=== PATIENT | male | born 1980 | race Caucasian/White ===

== ENCOUNTER 2025-06-22 10:52 | Emergency (ER) | payer SELFPAY ==
[2025-06-22 11:01] VITALS: BP 145/113; PULSE 78; RESP 16; TEMP 36.6; O2SAT 100; BMI 28.8
--- NOTE | 2025-06-22 11:10 | XR_ITS ---
WS: [id number] XR chest 1V portable [id number] REASON FOR EXAM: cough, chills, fever FINDINGS: The heart and mediastinum are within normal limits Minimal calcified granulomatous disease bilaterally. No acute pulmonary parenchymal or pleural abnormality. Mild degenerative spondylosis in the mid and lower thoracic spine. XR/XR chest 1V portable [id number] IMPRESSION: No acute chest abnormality.
--- NOTE | 2025-06-22 11:16 | ED_ITS ---
Documented by User: SAMM Brand 06/23/25 13:30 HPI - Dizziness 2 General: Chief Complaint: Dizziness Stated Complaint: dizzy, confusion, memory issues, n/v, sweating Time Seen by Provider: 06/22/25 11:01 Source: patient Mode of arrival: ambulatory Limitations: no limitations History of Present Illness: HPI Narrative: Patient is a 45-year-old male who presents the emergency department with multiple symptoms for the past few days. States his was recently sick after being in the hospital, patient thinks that he has contracted this. Reporting fevers and chills. He is reporting dizziness, weakness, nausea and vomiting. States that he has a dry cough, and that he has felt like prior incidence when he had COVID. No chest pain or shortness of breath. His vitals are stable at this time, no pertinent past medical history. MD elicited complaint: dizziness and other (weak, N/V, cough) Associated symptoms: Reports chills, nausea and vomiting; Denies chest pain, headache(s) or palpitations Associated neuro symptoms: Deny numbness in extremities Related Data Allergies Allergy/AdvReac Type Severity Reaction Status Date / Time No Known Allergies Allergy Verified 06/22/25 11:03 Review of Systems 2 General: Reports: 10 or more systems reviewed and unremarkable except in HPI and below Const: Reports: fever(s), chills and fatigue Eyes: Denies: change in vision ENMT: Denies: throat pain, ear or mastoid pain or nasal discharge Card: Denies: chest pain, palpitations, swelling of feet/ankles or lightheadedness Resp: Reports: non-productive cough; Denies: dyspnea, productive cough or wheezing GI: Reports: nausea and vomiting; Denies: abdominal pain, diarrhea or constipation : Denies: flank pain, difficulty urinating, dysuria or urinary frequency Musc: Denies: neck pain, back pain or joint pain Skin/Breast: Denies: rash Neuro: Reports: weakness in extremities and dizziness; Denies: headache(s) or numbness in extremities Physical Exam 2 Const: COMMON NORMALS: no acute distress, patient oriented x3 and no limitations GENERAL APPEARANCE: cooperative, comfortable and well developed ORIENTATION/CONSCIOUSNESS: Yes awake, Yes oriented to person, Yes oriented to place and Yes oriented to time HENMT: COMMON NORMALS: normocephalic, atraumatic and hearing grossly normal bilaterally HEAD & SCALP: normocephalic and atraumatic Eye: COMMON NORMALS: Equal, round and reactive pupils present, EOMs intact bilaterally and conjunctivae normal CONJUNCTIVA: Yes conjunctivae normal P UPIL: Yes Equal, round and reactive pupils present Neck/C-Spine: COMMON NORMALS: full ROM, supple and no JVD Resp: COMMON NORMALS: normal respiratory effort, No retractions, No use of accessory muscles and clear to auscultation bilaterally AUSCULTATION: clear to auscultation bilaterally Cardio: COMMON NORMALS: no JVD, regular rate, regular rhythm, No clicks present (Cardio), No murmurs present (Cardio) and No rub (Cardio) RATE: r egular rate RHYTHM: regular rhythm GI: COMMON NORMALS: Normal to inspection, nondistended, normoactive bowel sounds present, Soft to palpation and non-tender AUSCULTATION: Yes normoactive bowel sounds PALPATION: Yes Soft to palpation RECTAL EXAM: Yes deferred Extremity: COMMON NORMALS: normal to inspection, full ROM and capillary refill normal Neuro: COMMON NORMALS: patient oriented x3, moves all extremities, no focal motor deficits and no sensory deficits noted SENSORIUM/ORIENTATION: Yes oriented to person, Yes oriented to place and Yes oriented to time Skin: COMMON NORMALS: no rashes or lesions noted GENERAL SKIN EXAM: no rashes or lesions noted Course 2 Vital Signs: Vital signs: Vital Signs Temperature 97.9 F 06/22/25 11:01 Pulse Rate 72 06/22/25 12:30 Respiratory Rate 16 06/22/25 11:01 Blood Pressure 170/109 06/22/25 12:30 Pulse Oximetry 99 06/22/25 12:30 Oxygen Delivery Me thod Room Air 06/22/25 11:31 MDM - Dizziness Medical Decision Making Patient presenting after not feeling well for few days, positive sick contact exposure to spouse. Physical exam unremarkable, chest x-ray is not show any focal consolidation. Lab work reassuring, however COVID swab is positive. Patient is given instructions on contact precaution and further management at home but is stable for discharge and is given return precautions routinely. Lab Data 06/22/25 11:25 06/22/25 11:25 Radiology Impressions Chest X-Ray 06/22/25 11:10 IMPRESSION: No acute chest abnormality. Laboratory Results WBC 6.77 10^3/uL (3.29-11.43) 06/22/25 11: RBC 5.46 10^6/uL (3.85-5.65) 06/22/25 11:25 Hgb 15.40 g/dL (11.27-16.99) 06/22/25 11:25 Hct 45.9 % (37-53) 06/22/25 11:25 MCV 84.1 fl (82-101) 06/22/25 11:25 MCH 28.2 pg (27-33) 06/22/25 11:25 MCHC 33.6 g/dL (30-55) 06/22/25 11:25 RDW 13.3 % (12.1-15.1) 06/22/25 11: Plt Count 215 10^3/cmm (157-399) 06/22/25 11:25 MPV 9.8 fL (7.4-10.4) 06/22/25 11:25 Neut % (Auto) 81.1 % 06/22/25 11:25 Lymph % (Auto) 11.7 % 06/22/25 11:25 [place] % (Auto) 5.2 % 06/22/25 11:25 Eos % (Auto) 1.0 % 06/22/25 11:25 Baso % (Auto) 0.7 % 06/22/25 11: Neut # (Auto) 5.49 10^3/uL (1.8-7.7) 06/22/25 11:25 Lymph # (Auto) 0.8 10^3/uL (0.8-4.8) 06/22/25 11:25 [place] # (Auto) 0.4 10^3/uL (0.2-0.9) 06/22/25 11:25 Eos # (Auto) 0.1 10^3/uL (0.0-0.8) 06/22/25 11:25 Baso # (Auto) 0.1 10^3/uL (0.0-0.1) 06/22/25 11:25 Nucleated RBC % (auto) 0 % 06/22/25 11: Nucleated RBCs # 0.0 /100WBC 06/22/25 11:25 Sodium 143 mmol/L (136-145) 06/22/25 11:25 Potassium 3.7 mmol/L (3.5-5.1) 06/22/25 11:25 Chloride 104 mmol/L (98-107) 06/22/25 11:25 Carbon Dioxide 25 mmol/L (22-29) 06/22/25 11:25 Anion Gap 17.7 (5-19) 06/22/25 11:25 BUN 10 mg/dL (6-20) 06/22/25 11:25 Creatinine 1.0 mg/dL (0.7-1.2) 06/22/25 11:25 GFR Calculation 80.8 mL/min (90-130) L 06/22/25 11:25 Glucose 110 mg/dL (65-115) 06/22/25 11:25 Calculated Osmolality 296 mOsm/kg (285-295) H 06/22/25 11:25 Calcium 9.8 mg/dL (8.5-10.5) 06/22/25 11:25 Total Bilirubin 0.5 mg/dL (0.15-1.2) 06/22/25 11:25 AST 88 U/L (0-40) H 06/22/25 11:25 ALT 114 U/L (0-41) H 06/22/25 11:25 Alkaline Phosphatase 226 U/L (40-130) H 06/22/25 11:25 Total Protein 8.1 g/dL (6.6-8.7) 06/22/25 11:25 Albumin 4.5 g/dL (3.5-5.2) 06/22/25 11:25 Globulin 3.6 g/dL (1.3-4.6) 06/22/25 11:25 Urine Color Yellow (Yellow) 06/22/25 11:20 Urine Appearance Clear (CLEAR) 06/22/25 11:20 Urine pH >=9.0 (5-7) A 06/22/25 11:20 Ur Specific [place] 1.017 (1.005-1.030) 06/22/25 11:20 Urine Protein 1+ (Negative) A 06/22/25 11:20 Urine Glucose (UA) Negative (Normal) 06/22/25 11:20 Urine Ketones Trace (Negative) 06/22/25 11:20 Urine Blood Negative (Negative) 06/22/25 11:20 Urine Nitrate Negative (Negative) 06/22/25 11:20 Urine Bilirubin Negative (Negative) 06/22/25 11:20 Urine Urobilinogen 1.0 mg/dL (Negative) 06/22/25 11:20 Ur Leukocyte Esterase Negative (Negative) 06/22/25 11:20 Urine RBC 0-2 /hpf (0-2) 06/22/25 11:20 Urine WBC 0-5 /hpf (0-5) 06/22/25 11:20 Ur Squamous Epith Cells 0-5 /hpf (0-5) 06/22/25 11:20 Amorphous Sediment Not Reportable 06/22/25 11:20 Urine Bacteria None seen /hpf (NONE) 06/22/25 11:20 Hyaline Casts 0.81 /lpf 06/22/25 11:20 Influenza A (PCR) Negative (Negative) 06/22/25 11:26 Influenza Type B (PCR) Negative (Negative) 06/22/25 11:26 RSV (PCR) Negative (Negative) 06/22/25 11:26 SARS-CoV-2 (PCR) Positive (Negative) A 06/22/25 11:26 All radiology interpretation(s) finalized by discharge Discharge Plan Discharge Patient Disposition: Home Clinical Impression: COVID-19 Condition: Stable Discharge Orders: Discharge ED (Routine); Ordered 06/22/25 Ordered By: Claus Garsia Patient Instructions: Patient Portal & Heather Instructions Activity Restrictions/Additional Instructions: COVID-19 Discharge Instructions Diagnosis: 45-year-old male with confirmed COVID-19. Discharge Criteria Met: - Afebrile for >24 hours without antipyretics - Respiratory symptoms improved - Meets CDC symptom-based criteria for discontinuation of isolation[1] https://www.cdc.gov/covid/hcp/infection-control/ [2] https://www.ncbi.nlm.nih.gov/pmc/articles/XXC0939688/ [3] https://www.nejm.org/doi/full/10.1056/FHADgl1917891 Home Isolation and Infection Control: - Remain in home isolation until at least 10 days have passed since symptom onset, 24 hours have passed since last fever without antipyretics, and symptoms have improved. If symptoms persist or worsen, isolation may need to be extended. [1] https://www.cdc.gov/covid/hcp/infection-control/ [3] https://www.nejm.org/doi/full/10.1056/GEBBcj8343559 - If immunocompromised or severe illness, isolation may be required for up to 20 days; consider test-based strategy if clinically indicated.[1] https://www.cdc.gov/covid/hcp/infection-control/ - Stay in a well-ventilated single room, if possible. - Minimize contact with household members, especially those at increased risk (elderly, immunocompromised, , or with chronic conditions).[2] https://www.ncbi.nlm.nih.gov/pmc/articles/THP6778136/ - Use a well-fitted mask when around others, especially during the first 5 days after ending isolation.[4] https://www.nejm.org/doi/full/10.1056/HFKMkx9852821 - Practice strict hand hygiene and respiratory etiquette (cover coughs/sneezes, dispose of tissues appropriately).[5] https://jamanetwork.com/journals/antolin/fullarticle/10.1001/antolin.2020.77734?utm_so urce=openevidence&utm_medium=referral - Avoid sharing personal items (dishes, towels, bedding). - Clean and disinfect high-touch surfaces daily. Supportive Care: - Rest and maintain adequate hydration.[3] https://www.nejm.org/doi/full/10.1056/BVSYvx0088163 [6] https://pubmed.ncbi.nlm.nih.gov/43160642 - Use antipyretics (e.g., acetaminophen) for fever as needed. - Monitor for worsening symptoms, including increased shortness of breath, chest pain, confusion, or persistent fever.[3] https://www.nejm.org/doi/full/10.1056/MPNEtd2942582 [6] https://pubmed.ncbi.nlm.nih.gov/56036509 - Consider use of a pulse oximeter for self-monitoring if at high risk for complications.[3] https://www.nejm.org/doi/full/10.1056/HCCSfm4027302 - No evidence-based outpatient pharmacologic therapy is recommended for mild to moderate COVID-19; management is supportive.[6] https://pubmed.ncbi.nlm.nih.gov/57413121 [7] https://www.ncbi.nlm.nih.gov/pmc/articles/MLZ2229964/ Follow-Up and Monitoring: - Self-monitor for symptom recurrence or worsening. - Seek prompt medical attention for any of the following: - Difficulty breathing or shortness of breath - Persistent chest pain or pressure - New confusion or inability to arouse - Cyanosis (bluish lips or face)[3] https://www.nejm.org/doi/full/10.1056/AREObw1047680 [6] https://pubmed.ncbi.nlm.nih.gov/29638281 - Arrange telemedicine follow-up as needed until full recovery.[8] https://pubmed.ncbi.nlm.nih.gov/80077328 - If symptoms recur (e.g., rebound), resume isolation and seek re-evaluation.[1] https://www.cdc.gov/covid/hcp/infection-control/ Household Precautions: - Household members should monitor for symptoms and consider testing if symptomatic or exposed.[4] https://www.nejm.org/doi/full/10.1056/XOHRvy3338158 - All household members should adhere to infection control measures until risk of transmission is low.[2] https://www.ncbi.nlm.nih.gov/pmc/articles/YEN3515840/ Return to Work and Community: - May return to work and community activities after meeting CDC criteria for discontinuation of isolation.[1] https://www.cdc.gov/covid/hcp/infection- control/ [3] https://www.nejm.org/doi/full/10.1056/QSXLrs3107327 - Continue to wear a mask in public for 5 days after ending isolation.[4] https://www.nejm.org/doi/full/10.1056/IOMNhh9195559 Additional Considerations: - If immunocompromised, consult infectious disease for test-based discontinuation of isolation.[1] https://www.cdc.gov/covid/hcp/infection- control/ - If bacterial pneumonia is suspected, empiric antibiotics may be considered but should be discontinued if not indicated.[3] https://www.nej.org/doi/full/10.1056/PYGFub8847534 - No routine use of fluvoxamine or other outpatient COVID-19 therapies is recommended.[7] https://www.ncbi.nlm.nih.gov/pmc/articles/YDT9893613/ Patient Education: - Provide clear instructions on infection control, symptom monitoring, and when to seek care.[1] https://www.cdc.gov/covid/hcp/infection-control/ [2] https://www.ncbi.nlm.nih.gov/pmc/articles/MRG7390232/ [6] https://pubmed.ncbi.nlm.nih.gov/26814583 - Reinforce importance of adherence to isolation and hygiene measures. Documentation: - Discharge summary should include date of symptom onset, date of last fever, improvement in symptoms, and criteria met for discontinuation of isolation.[1] https://www.cdc.gov/covid/hcp/infection-control/ [2] https://www.ncbi.nlm.nih.gov/pmc/articles/IXM5340704/ [3] https://www.nej.org/doi/full/10.1056/IOJOdt2565628 References * Infection Control Guidance: SARS-CoV-2 COVID-19 https://www.cdc.gov/covid/hcp/infection-control/ . [place] Centers for Disease Control and Prevention (2022). * The Management of Surgical Patients in The?emergency Setting During COVID-19 Pandemic: The WS Position Paper https://www.ncbi.nlm.nih.gov/pmc/articles/PYR6386826/ . Head, Gwendolyn Casarez, Moraima Robertson, et al. World Journal of Emergency Surgery : WJES. 2020;16(1):14. doi:10.1186/e86910-135-94331-6. * Mild or Moderate Covid-19 https://www.nej.org/doi/full/10.1056/QELHyp8663106 . Wright RT, Isbell LOCO, Ranger C. The [place] Journal of Medicine. 2020;383(18):0164-3388. doi:10.1056/RNKSfj1411782. * Rapid Diagnostic Testing for SARS-CoV-2 https://www.nej.org/doi/full/10.1056/RLPMzp2115677 . Drain PK. The [place] Journal of Medicine. 2021;386(3):264-272. doi:10.1056/OIRExw6555706. * Pathophysiology, Transmission, Diagnosis, and Treatment of Coronavirus Disease 2019 (COVID-19): A Review https://jamanetwork.com/journals/antolin/fullarticle/10.1001/antolin.2020.60440?utm_ source=openevidence&utm_medium=referral . Brian CorreiaJ, Indigo A, Hawk TOPETE, Pretty SJ, Brown HC. ANTOLIN. 2020;324(8):782-793. doi:10.1001/antolin.2020.67223. * Outpatient Management of COVID-19: Rapid Evidence Review https://pubmed.ncbi.nlm.nih.gov/58723664 . Hawk Franco, Deepak D, Anita Acosta. [place] [employer]. 2020;102(8):478-486. * Outpatient Treatment of Confirmed COVID-19: Living, Rapid Practice Points From the [employer] [employer] (Version 1) https://www.ncbi.nlm.nih.gov/pmc/articles/BLX2128256/ . Regan A, Nirav J, Tatum MC, et al. Annals of Internal Medicine. 2022;176(1):115-124. doi:10.7580/D59-0192. * A Collaborative Multidisciplinary Approach to the Management of Coronavirus Disease 2019 in the Hospital Setting https://pubmed.ncbi.nlm.nih.gov/23658342 . Trent RR, Ilir KM, Jyothi AM, et al. [facility] Proceedings. 2020;95(7):8452-7498. doi:10.1016/j.mayocp.2020.05.010. Print Language: Swedish Coding Level of Care Code ED [employer] Reader for Chg Fwd Documented by User: Yoandy Kim DO 06/23/25 14:37 HPI - Dizziness 2 General: Chief Complaint: Dizziness Stated Complaint: dizzy, confusion, memory issues, n/v, sweating Time Seen by Provider: 06/22/25 11:01 Related Data Allergies Allergy/AdvReac Type Severity Reaction Status Date / Time No Known Allergies Allergy Verified 06/22/25 11:03 Course 2 Vital Signs: Vital signs: Vital Signs Temperature 97.9 F 06/22/25 11:01 Pulse Rate 72 06/22/25 12:30 Respiratory Rate 16 06/22/25 11:01 Blood Pressure 170/109 06/22/25 12:30 Pulse Oximetry 99 06/22/25 12:30 Oxygen Delivery Me thod Room Air 06/22/25 11:31 MDM - Dizziness Medical Decision Making Patient presenting after not feeling well for few days, positive sick contact exposure to spouse. Physical exam unremarkable, chest x-ray is not show any focal consolidation. Lab work reassuring, however COVID swab is positive. Patient is given instructions on contact precaution and further management at home but is stable for discharge and is given return precautions routinely. Chart reviewed and patient discussed with midlevel. Agree with assessment and plan. Lab Data 06/22/25 11:25 06/22/25 11:25 Radiology Impressions Chest X-Ray 06/22/25 11:10 IMPRESSION: No acute chest abnormality. Laboratory Results WBC 6.77 10^3/uL (3.29-11.43) 06/22/25 11: RBC 5.46 10^6/uL (3.85-5.65) 06/22/25 11:25 Hgb 15.40 g/dL (11.27-16.99) 06/22/25 11: Hct 45.9 % (37-53) 06/22/25 11:25 MCV 84.1 fl (82-101) 06/22/25 11:25 MCH 28.2 pg (27-33) 06/22/25 11:25 MCHC 33.6 g/dL (30-55) 06/22/25 11:25 RDW 13.3 % (12.1-15.1) 06/22/25 11:25 Plt Count 215 10^3/cmm (157-399) 06/22/25 11:25 MPV 9.8 fL (7.4-10.4) 06/22/25 11:25 Neut % (Auto) 81.1 % 06/22/25 11:25 Lymph % (Auto) 11.7 % 06/22/25 11:25 [place] % (Auto) 5.2 % 06/22/25 11:25 Eos % (Auto) 1.0 % 06/22/25 11:25 Baso % (Auto) 0.7 % 06/22/25 11:25 Neut # (Auto) 5.49 10^3/uL (1.8-7.7) 06/22/25 11:25 Lymph # (Auto) 0.8 10^3/uL (0.8-4.8) 06/22/25 11:25 [place] # (Auto) 0.4 10^3/uL (0.2-0.9) 06/22/25 11:25 Eos # (Auto) 0.1 10^3/uL (0.0-0.8) 06/22/25 11:25 Baso # (Auto) 0.1 10^3/uL (0.0-0.1) 06/22/25 11:25 Nucleated RBC % (auto) 0 % 06/22/25 11: Nucleated RBCs # 0.0 /100WBC 06/22/25 11:25 Sodium 143 mmol/L (136-145) 06/22/25 11:25 Potassium 3.7 mmol/L (3.5-5.1) 06/22/25 11:25 Chloride 104 mmol/L (98-107) 06/22/25 11:25 Carbon Dioxide 25 mmol/L (22-29) 06/22/25 11:25 Anion Gap 17.7 (5-19) 06/22/25 11:25 BUN 10 mg/dL (6-20) 06/22/25 11:25 Creatinine 1.0 mg/dL (0.7-1.2) 06/22/25 11:25 GFR Calculation 80.8 mL/min (90-130) L 06/22/25 11:25 Glucose 110 mg/dL (65-115) 06/22/25 11:25 Calculated Osmolality 296 mOsm/kg (285-295) H 06/22/25 11:25 Calcium 9.8 mg/dL (8.5-10.5) 06/22/25 11:25 Total Bilirubin 0.5 mg/dL (0.15-1.2) 06/22/25 11:25 AST 88 U/L (0-40) H 06/22/25 11:25 ALT 114 U/L (0-41) H 06/22/25 11:25 Alkaline Phosphatase 226 U/L (40-130) H 06/22/25 11:25 Total Protein 8.1 g/dL (6.6-8.7) 06/22/25 11:25 Albumin 4.5 g/dL (3.5-5.2) 06/22/25 11:25 Globulin 3.6 g/dL (1.3-4.6) 06/22/25 11:25 Urine Color Yellow (Yellow) 06/22/25 11:20 Urine Appearance Clear (CLEAR) 06/22/25 11:20 Urine pH >=9.0 (5-7) A 06/22/25 11:20 Ur Specific [place] 1.017 (1.005-1.030) 06/22/25 11:20 Urine Protein 1+ (Negative) A 06/22/25 11:20 Urine Glucose (UA) Negative (Normal) 06/22/25 11:20 Urine Ketones Trace (Negative) 06/22/25 11:20 Urine Blood Negative (Negative) 06/22/25 11:20 Urine Nitrate Negative (Negative) 06/22/25 11:20 Urine Bilirubin Negative (Negative) 06/22/25 11:20 Urine Urobilinogen 1.0 mg/dL (Negative) 06/22/25 11:20 Ur Leukocyte Esterase Negative (Negative) 06/22/25 11:20 Urine RBC 0-2 /hpf (0-2) 06/22/25 11:20 Urine WBC 0-5 /hpf (0-5) 06/22/25 11:20 Ur Squamous Epith Cells 0-5 /hpf (0-5) 06/22/25 11:20 Amorphous Sediment Not Reportable 06/22/25 11:20 Urine Bacteria None seen /hpf (NONE) 06/22/25 11:20 Hyaline Casts 0.81 /lpf 06/22/25 11:20 Influenza A (PCR) Negative (Negative) 06/22/25 11:26 Influenza Type B (PCR) Negative (Negative) 06/22/25 11:26 RSV (PCR) Negative (Negative) 06/22/25 11:26 SARS-CoV-2 (PCR) Positive (Negative) A 06/22/25 11:26 Discharge Plan Discharge Patient Disposition: Home Clinical Impression: COVID-19 Condition: Stable Discharge Orders: Discharge ED (Routine); Ordered 06/22/25 Ordered By: Claus Garsia Patient Instructions: Patient Portal & Heather Instructions Activity Restrictions/Additional Instructions: COVID-19 Discharge Instructions Diagnosis: 45-year-old male with confirmed COVID-19. Discharge Criteria Met: - Afebrile for >24 hours without antipyretics - Respiratory symptoms improved - Meets CDC symptom-based criteria for discontinuation of isolation[1] https://www.cdc.gov/covid/hcp/infection-control/ [2] https://www.ncbi.nlm.nih.gov/pmc/articles/RAL4863871/ [3] https://www.nejm.org/doi/full/10.1056/UPHDws2360394 Home Isolation and Infection Control: - Remain in home isolation until at least 10 days have passed since symptom onset, 24 hours have passed since last fever without antipyretics, and symptoms have improved. If symptoms persist or worsen, isolation may need to be extended. [1] https://www.cdc.gov/covid/hcp/infection-control/ [3] https://www.nejm.org/doi/full/10.1056/BXBGuv2216806 - If immunocompromised or severe illness, isolation may be required for up to 20 days; consider test-based strategy if clinically indicated.[1] https://www.cdc.gov/covid/hcp/infection-control/ - Stay in a well-ventilated single room, if possible. - Minimize contact with household members, especially those at increased risk (elderly, immunocompromised, , or with chronic conditions).[2] https://www.ncbi.nlm.nih.gov/pmc/articles/AMO2339444/ - Use a well-fitted mask when around others, especially during the first 5 days after ending isolation.[4] https://www.nejm.org/doi/full/10.1056/UDZBal2072344 - Practice strict hand hygiene and respiratory etiquette (cover coughs/sneezes, dispose of tissues appropriately).[5] https://jamanetwork.com/journals/antolin/fullarticle/10.1001/antolin.2020.79244?utm_so urce=openevidence&utm_medium=referral - Avoid sharing personal items (dishes, towels, bedding). - Clean and disinfect high-touch surfaces daily. Supportive Care: - Rest and maintain adequate hydration.[3] https://www.nejm.org/doi/full/10.1056/LDLFim1641898 [6] https://pubmed.ncbi.nlm.nih.gov/30244006 - Use antipyretics (e.g., acetaminophen) for fever as needed. - Monitor for worsening symptoms, including increased shortness of breath, chest pain, confusion, or persistent fever.[3] https://www.nejm.org/doi/full/10.1056/VQFRjl7910477 [6] https://pubmed.ncbi.nlm.nih.gov/76140248 - Consider use of a pulse oximeter for self-monitoring if at high risk for complications.[3] https://www.nejm.org/doi/full/10.1056/IUAVpq3531381 - No evidence-based outpatient pharmacologic therapy is recommended for mild to moderate COVID-19; management is supportive.[6] https://pubmed.ncbi.nlm.nih.gov/45264535 [7] https://www.ncbi.nlm.nih.gov/pmc/articles/FMS7160992/ Follow-Up and Monitoring: - Self-monitor for symptom recurrence or worsening. - Seek prompt medical attention for any of the following: - Difficulty breathing or shortness of breath - Persistent chest pain or pressure - New confusion or inability to arouse - Cyanosis (bluish lips or face)[3] https://www.nejm.org/doi/full/10.1056/TWWDbw6289225 [6] https://pubmed.ncbi.nlm.nih.gov/06145654 - Arrange telemedicine follow-up as needed until full recovery.[8] https://pubmed.ncbi.nlm.nih.gov/62890600 - If symptoms recur (e.g., rebound), resume isolation and seek re-evaluation.[1] https://www.cdc.gov/covid/hcp/infection-control/ Household Precautions: - Household members should monitor for symptoms and consider testing if symptomatic or exposed.[4] https://www.nejm.org/doi/full/10.1056/YUCRxa6470630 - All household members should adhere to infection control measures until risk of transmission is low.[2] https://www.ncbi.nlm.nih.gov/pmc/articles/RSA6909015/ Return to Work and Community: - May return to work and community activities after meeting CDC criteria for discontinuation of isolation.[1] https://www.cdc.gov/covid/hcp/infection- control/ [3] https://www.nejm.org/doi/full/10.1056/NAFGha8856575 - Continue to wear a mask in public for 5 days after ending isolation.[4] https://www.nejm.org/doi/full/10.1056/UQTMew7903974 Additional Considerations: - If immunocompromised, consult infectious disease for test-based discontinuation of isolation.[1] https://www.cdc.gov/covid/hcp/infection- control/ - If bacterial pneumonia is suspected, empiric antibiotics may be considered but should be discontinued if not indicated.[3] https://www.nejm.org/doi/full/10.1056/RRVQcp5297088 - No routine use of fluvoxamine or other outpatient COVID-19 therapies is recommended.[7] https://www.ncbi.nlm.nih.gov/pmc/articles/YNV0584187/ Patient Education: - Provide clear instructions on infection control, symptom monitoring, and when to seek care.[1] https://www.cdc.gov/covid/hcp/infection-control/ [2] https://www.ncbi.nlm.nih.gov/pmc/articles/LWN3480707/ [6] https://pubmed.ncbi.nlm.nih.gov/05332875 - Reinforce importance of adherence to isolation and hygiene measures. Documentation: - Discharge summary should include date of symptom onset, date of last fever, improvement in symptoms, and criteria met for discontinuation of isolation.[1] https://www.cdc.gov/covid/hcp/infection-control/ [2] https://www.ncbi.nlm.nih.gov/pmc/articles/MPI5759312/ [3] https://www.nejm.org/doi/full/10.1056/SUZWwj3429318 References * Infection Control Guidance: SARS-CoV-2 COVID-19 https://www.cdc.gov/covid/hcp/infection-control/ . [place] Centers for Disease Control and Prevention (2022). * The Management of Surgical Patients in The?emergency Setting During COVID-19 Pandemic: The WSES Position Paper https://www.ncbi.nlm.nih.gov/pmc/articles/OIY8983619/ . Wood B, Gwendolyn E, Moraima M, et al. World Journal of Emergency Surgery : WJES. 2020;16(1):14. doi:10.1186/z83561-178-14593-6. * Mild or Moderate Covid-19 https://www.nejm.org/doi/full/10.1056/EDVOap9859326 . Adriana RT, Sukhi LOCO, Franklin Okeefe C. The [employer] [employer] Medicine. 2020;383(18):0651-3604. doi:10.1056/NKBJac0704972. * Rapid Diagnostic Testing for SARS-CoV-2 https://www.nejm.org/doi/full/10.1056/YNONzr5673366 . Drain PK. The [employer] Medicine. 2021;386(3):264-272. doi:10.1056/LROBpk6990590. * Pathophysiology, Transmission, Diagnosis, and Treatment of Coronavirus Disease 2019 (COVID-19): A Review https://jamanetwork.com/journals/antolin/fullarticle/10.1001/antolin.2020.67054?utm_ source=openevidence&utm_medium=referral . Brian WANG, Indigo A, Hawk TOPETE, Pretty SJ, Brown HC. ANTOLIN. 2020;324(8):782-793. doi:10.1001/antolin.2020.00071. * Outpatient Management of COVID-19: Rapid Evidence Review https://pubmed.ncbi.nlm.nih.gov/01257683 . Hawk Franco, Deepak D, Anita C. [employer]. 2020;102(8):478-486. * Outpatient Treatment of Confirmed COVID-19: Living, Rapid Practice Points From the [employer] (Version 1) https://www.ncbi.nlm.nih.gov/pmc/articles/HHG8318574/ . Regan A, Nirav J, Tatum MC, et al. Annals of Internal Medicine. 2022;176(1):115-124. doi:10.7326/C98-0533. * A Collaborative Multidisciplinary Approach to the Management of Coronavirus Disease 2019 in the Hospital Setting https://pubmed.ncbi.nlm.nih.gov/91882839 . Trent RR, Ilir KM, Jyothi AM, et al. [facility] Proceedings. 2020;95(7):4683-5876. doi:10.1016/j.mayocp.2020.05.010. Print Language: Swedish Coding Level of Care Code ED [employer] Reader for Susan Garvin
--- NOTE | 2025-06-22 11:16 | W.ED.DIZZY ---
Documented by User: SAMM Brand 06/23/25 13:30 HPI - Dizziness General: Chief Complaint: Dizziness Stated Complaint: dizzy, confusion, memory issues, n/v, sweating Time Seen by Provider: 06/22/25 11:01 Source: patient Mode of arrival: ambulatory Limitations: no limitations History of Present Illness: HPI Narrative: Patient is a 45-year-old male who presents the emergency department with multiple symptoms for the past few days. States his was recently sick after being in the hospital, patient thinks that he has contracted this. Reporting fevers and chills. He is reporting dizziness, weakness, nausea and vomiting. States that he has a dry cough, and that he has felt like prior incidence when he had COVID. No chest pain or shortness of breath. His vitals are stable at this time, no pertinent past medical history. MD elicited complaint: dizziness and other (weak, N/V, cough) Associated symptoms: Reports chills, nausea and vomiting; Denies chest pain, headache(s) or palpitations Associated neuro symptoms: Deny numbness in extremities Related Data Allergies Allergy/AdvReac Type Severity Reaction Status Date / Time No Known Allergies Allergy Verified 06/22/25 11:03 Review of Systems General: Reports: 10 or more systems reviewed and unremarkable except in HPI and below Const: Reports: fever(s), chills and fatigue Eyes: Denies: change in vision ENMT: Denies: throat pain, ear or mastoid pain or nasal discharge Card: Denies: chest pain, palpitations, swelling of feet/ankles or lightheadedness Resp: Reports: non-productive cough; Denies: dyspnea, productive cough or wheezing GI: Reports: nausea and vomiting; Denies: abdominal pain, diarrhea or constipation : Denies: flank pain, difficulty urinating, dysuria or urinary frequency Musc: Denies: neck pain, back pain or joint pain Skin/Breast: Denies: rash Neuro: Reports: weakness in extremities and dizziness; Denies: headache(s) or numbness in extremities Physical Exam Const: COMMON NORMALS: no acute distress, patient oriented x3 and no limitations GENERAL APPEARANCE: cooperative, comfortable and well developed ORIENTATION/CONSCIOUSNESS: Yes awake, Yes oriented to person, Yes oriented to place and Yes oriented to time HENMT: COMMON NORMALS: normocephalic, atraumatic and hearing grossly normal bilaterally HEAD & SCALP: normocephalic and atraumatic Eye: COMMON NORMALS: Equal, round and reactive pupils present, EOMs intact bilaterally and conjunctivae normal CONJUNCTIVA: Yes conjunctivae normal PUPIL: Yes Equal, round and reactive pupils present Neck/C-Spine: COMMON NORMALS: full ROM, supple and no JVD Resp: COMMON NORMALS: normal respiratory effort, No retractions, No use of accessory muscles and clear to auscultation bilaterally AUSCULTATION: clear to auscultation bilaterally Cardio: COMMON NORMALS: no JVD, regular rate, regular rhythm, No clicks present (Cardio), No murmurs present (Cardio) and No rub (Cardio) RATE: regular rate RHYTHM: regular rhythm GI: COMMON NORMALS: Normal to inspection, nondistended, normoactive bowel sounds present, Soft to palpation and non-tender AUSCULTATION: Yes normoactive bowel sounds PALPATION: Yes Soft to palpation RECTAL EXAM: Yes deferred Extremity: COMMON NORMALS: normal to inspection, full ROM and capillary refill normal Neuro: COMMON NORMALS: patient oriented x3, moves all extremities, no focal motor deficits and no sensory deficits noted SENSORIUM/ORIENTATION: Yes oriented to person, Yes oriented to place and Yes oriented to time Skin: COMMON NORMALS: no rashes or lesions noted GENERAL SKIN EXAM: no rashes or lesions noted Course Vital Signs: Vital signs: Vital Signs Temperature 97.9 F 06/22/25 11:01 Pulse Rate 72 06/22/25 12:30 Respiratory Rate 16 06/22/25 11:01 Blood Pressure 170/109 06/22/25 12:30 Pulse Oximetry 99 06/22/25 12:30 Oxygen Delivery Me thod Room Air 06/22/25 11:31 MDM - Dizziness Medical Decision Making Patient presenting after not feeling well for few days, positive sick contact exposure to spouse. Physical exam unremarkable, chest x-ray is not show any focal consolidation. Lab work reassuring, however COVID swab is positive. Patient is given instructions on contact precaution and further management at home but is stable for discharge and is given return precautions routinely. Lab Data 06/22/25 11:25 06/22/25 11:25 Radiology Impressions Chest X-Ray 06/22/25 11:10 IMPRESSION: No acute chest abnormality. Laboratory Results WBC 6.77 10^3/uL (3.29-11.43) 06/22/25 11: RBC 5.46 10^6/uL (3.85-5.65) 06/22/25 11: Hgb 15.40 g/dL (11.27-16.99) 06/22/25 11:25 Hct 45.9 % (37-53) 06/22/25 11:25 MCV 84.1 fl (82-101) 06/22/25 11:25 MCH 28.2 pg (27-33) 06/22/25 11:25 MCHC 33.6 g/dL (30-55) 06/22/25 11: RDW 13.3 % (12.1-15.1) 06/22/25 11: Plt Count 215 10^3/cmm (157-399) 06/22/25 11: MPV 9.8 fL (7.4-10.4) 06/22/25 11: Neut % (Auto) 81.1 % 06/22/25 11:25 Lymph % (Auto) 11.7 % 06/22/25 11:25 Adams % (Auto) 5.2 % 06/22/25 11:25 Eos % (Auto) 1.0 % 06/22/25 11: Baso % (Auto) 0.7 % 06/22/25 11: Neut # (Auto) 5.49 10^3/uL (1.8-7.7) 06/22/25 11: Lymph # (Auto) 0.8 10^3/uL (0.8-4.8) 06/22/25 11:25 Adams # (Auto) 0.4 10^3/uL (0.2-0.9) 06/22/25 11:25 Eos # (Auto) 0.1 10^3/uL (0.0-0.8) 06/22/25 11: Baso # (Auto) 0.1 10^3/uL (0.0-0.1) 06/22/25 11: Nucleated RBC % (auto) 0 % 06/22/25 11: Nucleated RBCs # 0.0 /100WBC 06/22/25 11:25 Sodium 143 mmol/L (136-145) 06/22/25 11:25 Potassium 3.7 mmol/L (3.5-5.1) 06/22/25 11:25 Chloride 104 mmol/L (98-107) 06/22/25 11:25 Carbon Dioxide 25 mmol/L (22-29) 06/22/25 11:25 Anion Gap 17.7 (5-19) 06/22/25 11:25 BUN 10 mg/dL (6-20) 06/22/25 11:25 Creatinine 1.0 mg/dL (0.7-1.2) 06/22/25 11:25 GFR Calculation 80.8 mL/min (90-130) L 06/22/25 11:25 Glucose 110 mg/dL (65-115) 06/22/25 11:25 Calculated Osmolality 296 mOsm/kg (285-295) H 06/22/25 11:25 Calcium 9.8 mg/dL (8.5-10.5) 06/22/25 11:25 Total Bilirubin 0.5 mg/dL (0.15-1.2) 06/22/25 11:25 AST 88 U/L (0-40) H 06/22/25 11:25 ALT 114 U/L (0-41) H 06/22/25 11:25 Alkaline Phosphatase 226 U/L (40-130) H 06/22/25 11:25 Total Protein 8.1 g/dL (6.6-8.7) 06/22/25 11:25 Albumin 4.5 g/dL (3.5-5.2) 06/22/25 11:25 Globulin 3.6 g/dL (1.3-4.6) 06/22/25 11:25 Urine Color Yellow (Yellow) 06/22/25 11:20 Urine Appearance Clear (CLEAR) 06/22/25 11:20 Urine pH >=9.0 (5-7) A 06/22/25 11:20 Ur Specific [place] 1.017 (1.005-1.030) 06/22/25 11:20 Urine Protein 1+ (Negative) A 06/22/25 11:20 Urine Glucose (UA) Negative (Normal) 06/22/25 11:20 Urine Ketones Trace (Negative) 06/22/25 11:20 Urine Blood Negative (Negative) 06/22/25 11:20 Urine Nitrate Negative (Negative) 06/22/25 11:20 Urine Bilirubin Negative (Negative) 06/22/25 11:20 Urine Urobilinogen 1.0 mg/dL (Negative) 06/22/25 11:20 Ur Leukocyte Esterase Negative (Negative) 06/22/25 11:20 Urine RBC 0-2 /hpf (0-2) 06/22/25 11:20 Urine WBC 0-5 /hpf (0-5) 06/22/25 11:20 Ur Squamous Epith Cells 0-5 /hpf (0-5) 06/22/25 11:20 Amorphous Sediment Not Reportable 06/22/25 11:20 Urine Bacteria None seen /hpf (NONE) 06/22/25 11:20 Hyaline Casts 0.81 /lpf 06/22/25 11:20 Influenza A (PCR) Negative (Negative) 06/22/25 11:26 Influenza Type B (PCR) Negative (Negative) 06/22/25 11:26 RSV (PCR) Negative (Negative) 06/22/25 11:26 SARS-CoV-2 (PCR) Positive (Negative) A 06/22/25 11:26 All radiology interpretation(s) finalized by discharge Discharge Plan Discharge Patient Disposition: Home Clinical Impression: COVID-19 Condition: Stable Discharge Orders: Discharge ED (Routine); Ordered 06/22/25 Ordered By: Claus Garsia Patient Instructions: Patient Portal & Heather Instructions Activity Restrictions/Additional Instructions: COVID-19 Discharge Instructions Diagnosis: 45-year-old male with confirmed COVID-19. Discharge Criteria Met: - Afebrile for >24 hours without antipyretics - Respiratory symptoms improved - Meets CDC symptom-based criteria for discontinuation of isolation[1]https://www.cdc.gov/covid/hcp/infection-control/[2]https://www.ncbi.nlm.nih.gov/pmc/articles/KPW4139908/[3]https://www.nejm.org/doi/full/10.1056/TYYVnj7434091 Home Isolation and Infection Control: - Remain in home isolation until at least 10 days have passed since symptom onset, 24 hours have passed since last fever without antipyretics, and symptoms have improved. If symptoms persist or worsen, isolation may need to be extended.[1]https://www.cdc.gov/covid/hcp/infection-control/[3]https://www.nejm.org/doi/full/10.1056/BTGFpp8599982 - If immunocompromised or severe illness, isolation may be required for up to 20 days; consider test-based strategy if clinically indicated.[1]https://www.cdc.gov/covid/hcp/infection-control/ - Stay in a well-ventilated single room, if possible. - Minimize contact with household members, especially those at increased risk (elderly, immunocompromised, , or with chronic conditions).[2]https://www.ncbi.nlm.nih.gov/pmc/articles/FIF4241602/ - Use a well-fitted mask when around others, especially during the first 5 days after ending isolation.[4]https://www.nejm.org/doi/full/10.1056/SKMHuj7524132 - Practice strict hand hygiene and respiratory etiquette (cover coughs/sneezes, dispose of tissues appropriately).[5]https://jamanetwork.com/journals/antolin/fullarticle/10.1001/antolin.2020.99969?utm_source=openevidence&utm_medium=referral - Avoid sharing personal items (dishes, towels, bedding). - Clean and disinfect high-touch surfaces daily. Supportive Care: - Rest and maintain adequate hydration.[3]https://www.nejm.org/doi/full/10.1056/DBZHek9480634[6]https://pubmed.ncbi.nlm.nih.gov/41816187 - Use antipyretics (e.g., acetaminophen) for fever as needed. - Monitor for worsening symptoms, including increased shortness of breath, chest pain, confusion, or persistent fever.[3]https://www.nejm.org/doi/full/10.1056/PLMIlv5985373[6]https://pubmed.ncbi.nlm.nih.gov/75340836 - Consider use of a pulse oximeter for self-monitoring if at high risk for complications.[3]https://www.nejm.org/doi/full/10.1056/BNULfu1619104 - No evidence-based outpatient pharmacologic therapy is recommended for mild to moderate COVID-19; management is supportive.[6]https://pubmed.ncbi.nlm.nih.gov/05571682[7]https://www.ncbi.nlm.nih.gov/pmc/articles/TIB8015802/ Follow-Up and Monitoring: - Self-monitor for symptom recurrence or worsening. - Seek prompt medical attention for any of the following: - Difficulty breathing or shortness of breath - Persistent chest pain or pressure - New confusion or inability to arouse - Cyanosis (bluish lips or face)[3]https://www.nejm.org/doi/full/10.1056/XIKLvj7848974[6]https://pubmed.ncbi.nlm.nih.gov/02976225 - Arrange telemedicine follow-up as needed until full recovery.[8]https://pubmed.ncbi.nlm.nih.gov/54010242 - If symptoms recur (e.g., rebound), resume isolation and seek re-evaluation.[1]https://www.cdc.gov/covid/hcp/infection-control/ Household Precautions: - Household members should monitor for symptoms and consider testing if symptomatic or exposed.[4]https://www.nejm.org/doi/full/10.1056/TJEFya5031964 - All household members should adhere to infection control measures until risk of transmission is low.[2]https://www.ncbi.nlm.nih.gov/pmc/articles/HNC7207295/ Return to Work and Community: - May return to work and community activities after meeting CDC criteria for discontinuation of isolation.[1]https://www.cdc.gov/covid/hcp/infection-control/[3]https://www.nejm.org/doi/full/10.1056/DWUDuv2593608 - Continue to wear a mask in public for 5 days after ending isolation.[4]https://www.nejm.org/doi/full/10.1056/GZNOpo6359976 Additional Considerations: - If immunocompromised, consult infectious disease for test-based discontinuation of isolation.[1]https://www.cdc.gov/covid/hcp/infection-control/ - If bacterial pneumonia is suspected, empiric antibiotics may be considered but should be discontinued if not indicated.[3]https://www.nejm.org/doi/full/10.1056/JDKEhz6094430 - No routine use of fluvoxamine or other outpatient COVID-19 therapies is recommended.[7]https://www.ncbi.nlm.nih.gov/pmc/articles/BEM8463379/ Patient Education: - Provide clear instructions on infection control, symptom monitoring, and when to seek care.[1]https://www.cdc.gov/covid/hcp/infection-control/[2]https://www.ncbi.nlm.nih.gov/pmc/articles/MST2384033/[6]https://pubmed.ncbi.nlm.nih.gov/71876865 - Reinforce importance of adherence to isolation and hygiene measures. Documentation: - Discharge summary should include date of symptom onset, date of last fever, improvement in symptoms, and criteria met for discontinuation of isolation.[1]https://www.cdc.gov/covid/hcp/infection-control/[2]https://www.ncbi.nlm.nih.gov/pmc/articles/WKP2206803/[3]https://www.nej.org/doi/full/10.1056/XZFArf8560073 References Infection Control Guidance: SARS-CoV-2 COVID-19https://www.cdc.gov/covid/hcp/infection-control/. [place] Centers for Disease Control and Prevention (2022). The Management of Surgical Patients in The?emergency Setting During COVID-19 Pandemic: The WSES Position Paperhttps://www.ncbi.nlm.nih.gov/pmc/articles/BJY1047929/. Head, Gwendolyn Casarez, Moraima Robertson, et al. World Journal of Emergency Surgery : WJES. 2020;16(1):14. doi:10.1186/u62670-808-10959-2. Mild or Moderate Covid-19https://www.nejm.org/doi/full/10.1056/KDDZdf3483538. Wright RT, Isbell LOCO, Newton C. The [employer] Journal of Medicine. 2020;383(18):6169-8349. doi:10.1056/FLHTqo2359279. Rapid Diagnostic Testing for RZAN-UiC-3kqnbj://www.nej.org/doi/full/10.1056/DGMSqe2422853. Drain PK. The [employer] Journal of Medicine. 2021;386(3):264-272. doi:10.1056/DHJYoh4357105. Pathophysiology, Transmission, Diagnosis, and Treatment of Coronavirus Disease 2019 (COVID-19): A Reviewhttps://jamanetwork.com/journals/antolin/fullarticle/10.1001/antolin.2020.99888?utm_source=openevidence&utm_medium=referral. Brian CorreiaJ, Indigo A, Hawk TOPETE, Pretty SJ, Brown HC. ANTOLIN. 2020;324(8):782-793. doi:10.1001/antolin.2020.50306. Outpatient Management of COVID-19: Rapid Evidence Reviewhttps://pubmed.ncbi.nlm.nih.gov/58968579. Hawk Franco, Deepak D, Anita C. [employer]. 2020;102(8):478-486. Outpatient Treatment of Confirmed COVID-19: Living, Rapid Practice Points From the [employer] (Version 1)https://www.ncbi.nlm.nih.gov/pmc/articles/CCM7880209/. Regan A, Nirav J, Tatum MC, et al. Annals of Internal Medicine. 2022;176(1):115-124. doi:10.1915/M12-1243. A Collaborative Multidisciplinary Approach to the Management of Coronavirus Disease 2019 in the Hospital Settinghttps://pubmed.ncbi.nlm.nih.gov/32434072. Trent RR, Ilir KM, Jyothi AM, et al. [facility] Proceedings. 2020;95(7):1073-0208. doi:10.1016/j.mayocp.2019.05.010. Print Language: Argentine Coding Level of Care Code ED Shipping Order Clerk for Chg Fwd Documented by User: Yoandy Kim DO 06/23/25 14:37 HPI - Dizziness General: Chief Complaint: Dizziness Stated Complaint: dizzy, confusion, memory issues, n/v, sweating Time Seen by Provider: 06/22/25 11:01 Related Data Allergies Allergy/AdvReac Type Severity Reaction Status Date / Time No Known Allergies Allergy Verified 06/22/25 11:03 Course Vital Signs: Vital signs: Vital Signs Temperature 97.9 F 06/22/25 11:01 Pulse Rate 72 06/22/25 12:30 Respiratory Rate 16 06/22/25 11:01 Blood Pressure 170/109 06/22/25 12:30 Pulse Oximetry 99 06/22/25 12:30 Oxygen Delivery Me thod Room Air 06/22/25 11:31 MDM - Dizziness Medical Decision Making Patient presenting after not feeling well for few days, positive sick contact exposure to spouse. Physical exam unremarkable, chest x-ray is not show any focal consolidation. Lab work reassuring, however COVID swab is positive. Patient is given instructions on contact precaution and further management at home but is stable for discharge and is given return precautions routinely. Chart reviewed and patient discussed with midlevel. Agree with assessment and plan. Lab Data 06/22/25 11:25 06/22/25 11:25 Radiology Impressions Chest X-Ray 06/22/25 11:10 IMPRESSION: No acute chest abnormality. Laboratory Results WBC 6.77 10^3/uL (3.29-11.43) 06/22/25 11: RBC 5.46 10^6/uL (3.85-5.65) 06/22/25 11:25 Hgb 15.40 g/dL (11.27-16.99) 06/22/25 11:25 Hct 45.9 % (37-53) 06/22/25 11:25 MCV 84.1 fl (82-101) 06/22/25 11:25 MCH 28.2 pg (27-33) 06/22/25 11: MCHC 33.6 g/dL (30-55) 06/22/25 11: RDW 13.3 % (12.1-15.1) 06/22/25 11:25 Plt Count 215 10^3/cmm (157-399) 06/22/25 11:25 MPV 9.8 fL (7.4-10.4) 06/22/25 11:25 Neut % (Auto) 81.1 % 06/22/25 11:25 Lymph % (Auto) 11.7 % 06/22/25 11:25 Adams % (Auto) 5.2 % 06/22/25 11: Eos % (Auto) 1.0 % 06/22/25 11:25 Baso % (Auto) 0.7 % 06/22/25 11: Neut # (Auto) 5.49 10^3/uL (1.8-7.7) 06/22/25 11:25 Lymph # (Auto) 0.8 10^3/uL (0.8-4.8) 06/22/25 11:25 Adams # (Auto) 0.4 10^3/uL (0.2-0.9) 06/22/25 11: Eos # (Auto) 0.1 10^3/uL (0.0-0.8) 06/22/25 11:25 Baso # (Auto) 0.1 10^3/uL (0.0-0.1) 06/22/25 11: Nucleated RBC % (auto) 0 % 06/22/25 11: Nucleated RBCs # 0.0 /100WBC 06/22/25 11:25 Sodium 143 mmol/L (136-145) 06/22/25 11:25 Potassium 3.7 mmol/L (3.5-5.1) 06/22/25 11:25 Chloride 104 mmol/L (98-107) 06/22/25 11:25 Carbon Dioxide 25 mmol/L (22-29) 06/22/25 11:25 Anion Gap 17.7 (5-19) 06/22/25 11:25 BUN 10 mg/dL (6-20) 06/22/25 11:25 Creatinine 1.0 mg/dL (0.7-1.2) 06/22/25 11:25 GFR Calculation 80.8 mL/min (90-130) L 06/22/25 11:25 Glucose 110 mg/dL (65-115) 06/22/25 11:25 Calculated Osmolality 296 mOsm/kg (285-295) H 06/22/25 11:25 Calcium 9.8 mg/dL (8.5-10.5) 06/22/25 11:25 Total Bilirubin 0.5 mg/dL (0.15-1.2) 06/22/25 11:25 AST 88 U/L (0-40) H 06/22/25 11:25 ALT 114 U/L (0-41) H 06/22/25 11:25 Alkaline Phosphatase 226 U/L (40-130) H 06/22/25 11:25 Total Protein 8.1 g/dL (6.6-8.7) 06/22/25 11:25 Albumin 4.5 g/dL (3.5-5.2) 06/22/25 11:25 Globulin 3.6 g/dL (1.3-4.6) 06/22/25 11:25 Urine Color Yellow (Yellow) 06/22/25 11:20 Urine Appearance Clear (CLEAR) 06/22/25 11:20 Urine pH >=9.0 (5-7) A 06/22/25 11:20 Ur Specific [place] 1.017 (1.005-1.030) 06/22/25 11:20 Urine Protein 1+ (Negative) A 06/22/25 11:20 Urine Glucose (UA) Negative (Normal) 06/22/25 11:20 Urine Ketones Trace (Negative) 06/22/25 11:20 Urine Blood Negative (Negative) 06/22/25 11:20 Urine Nitrate Negative (Negative) 06/22/25 11:20 Urine Bilirubin Negative (Negative) 06/22/25 11:20 Urine Urobilinogen 1.0 mg/dL (Negative) 06/22/25 11:20 Ur Leukocyte Esterase Negative (Negative) 06/22/25 11:20 Urine RBC 0-2 /hpf (0-2) 06/22/25 11:20 Urine WBC 0-5 /hpf (0-5) 06/22/25 11:20 Ur Squamous Epith Cells 0-5 /hpf (0-5) 06/22/25 11:20 Amorphous Sediment Not Reportable 06/22/25 11:20 Urine Bacteria None seen /hpf (NONE) 06/22/25 11:20 Hyaline Casts 0.81 /lpf 06/22/25 11:20 Influenza A (PCR) Negative (Negative) 06/22/25 11:26 Influenza Type B (PCR) Negative (Negative) 06/22/25 11:26 RSV (PCR) Negative (Negative) 06/22/25 11:26 SARS-CoV-2 (PCR) Positive (Negative) A 06/22/25 11:26 Discharge Plan Discharge Patient Disposition: Home Clinical Impression: COVID-19 Condition: Stable Discharge Orders: Discharge ED (Routine); Ordered 06/22/25 Ordered By: Claus Garsia Patient Instructions: Patient Portal & Heather Instructions Activity Restrictions/Additional Instructions: COVID-19 Discharge Instructions Diagnosis: 45-year-old male with confirmed COVID-19. Discharge Criteria Met: - Afebrile for >24 hours without antipyretics - Respiratory symptoms improved - Meets CDC symptom-based criteria for discontinuation of isolation[1]https://www.cdc.gov/covid/hcp/infection-control/[2]https://www.ncbi.nlm.nih.gov/pmc/articles/WAW2628293/[3]https://www.nejm.org/doi/full/10.1056/JMXHhc6924932 Home Isolation and Infection Control: - Remain in home isolation until at least 10 days have passed since symptom onset, 24 hours have passed since last fever without antipyretics, and symptoms have improved. If symptoms persist or worsen, isolation may need to be extended.[1]https://www.cdc.gov/covid/hcp/infection-control/[3]https://www.nejm.org/doi/full/10.1056/LSHKlb1998793 - If immunocompromised or severe illness, isolation may be required for up to 20 days; consider test-based strategy if clinically indicated.[1]https://www.cdc.gov/covid/hcp/infection-control/ - Stay in a well-ventilated single room, if possible. - Minimize contact with household members, especially those at increased risk (elderly, immunocompromised, , or with chronic conditions).[2]https://www.ncbi.nlm.nih.gov/pmc/articles/FMH8898831/ - Use a well-fitted mask when around others, especially during the first 5 days after ending isolation.[4]https://www.nejm.org/doi/full/10.1056/ZGAWwr7117544 - Practice strict hand hygiene and respiratory etiquette (cover coughs/sneezes, dispose of tissues appropriately).[5]https://jamanetwork.com/journals/antolin/fullarticle/10.1001/antolin.2020.08624?utm_source=openevidence&utm_medium=referral - Avoid sharing personal items (dishes, towels, bedding). - Clean and disinfect high-touch surfaces daily. Supportive Care: - Rest and maintain adequate hydration.[3]https://www.nejm.org/doi/full/10.1056/KOWLfh9889277[6]https://pubmed.ncbi.nlm.nih.gov/36568891 - Use antipyretics (e.g., acetaminophen) for fever as needed. - Monitor for worsening symptoms, including increased shortness of breath, chest pain, confusion, or persistent fever.[3]https://www.nejm.org/doi/full/10.1056/VXVHoq0895941[6]https://pubmed.ncbi.nlm.nih.gov/08139205 - Consider use of a pulse oximeter for self-monitoring if at high risk for complications.[3]https://www.nejm.org/doi/full/10.1056/ROLRyw5418447 - No evidence-based outpatient pharmacologic therapy is recommended for mild to moderate COVID-19; management is supportive.[6]https://pubmed.ncbi.nlm.nih.gov/47449041[7]https://www.ncbi.nlm.nih.gov/pmc/articles/BUH4767166/ Follow-Up and Monitoring: - Self-monitor for symptom recurrence or worsening. - Seek prompt medical attention for any of the following: - Difficulty breathing or shortness of breath - Persistent chest pain or pressure - New confusion or inability to arouse - Cyanosis (bluish lips or face)[3]https://www.nejm.org/doi/full/10.1056/VZNXvm8109754[6]https://pubmed.ncbi.nlm.nih.gov/99225136 - Arrange telemedicine follow-up as needed until full recovery.[8]https://pubmed.ncbi.nlm.nih.gov/72356554 - If symptoms recur (e.g., rebound), resume isolation and seek re-evaluation.[1]https://www.cdc.gov/covid/hcp/infection-control/ Household Precautions: - Household members should monitor for symptoms and consider testing if symptomatic or exposed.[4]https://www.nejm.org/doi/full/10.1056/LZYXix9843011 - All household members should adhere to infection control measures until risk of transmission is low.[2]https://www.ncbi.nlm.nih.gov/pmc/articles/XWS0058227/ Return to Work and Community: - May return to work and community activities after meeting CDC criteria for discontinuation of isolation.[1]https://www.cdc.gov/covid/hcp/infection-control/[3]https://www.nejm.org/doi/full/10.1056/FQYZrb1814225 - Continue to wear a mask in public for 5 days after ending isolation.[4]https://www.nejm.org/doi/full/10.1056/KGKRvl4552056 Additional Considerations: - If immunocompromised, consult infectious disease for test-based discontinuation of isolation.[1]https://www.cdc.gov/covid/hcp/infection-control/ - If bacterial pneumonia is suspected, empiric antibiotics may be considered but should be discontinued if not indicated.[3]https://www.nejm.org/doi/full/10.1056/NKSQkw6441183 - No routine use of fluvoxamine or other outpatient COVID-19 therapies is recommended.[7]https://www.ncbi.nlm.nih.gov/pmc/articles/TNK8287149/ Patient Education: - Provide clear instructions on infection control, symptom monitoring, and when to seek care.[1]https://www.cdc.gov/covid/hcp/infection-control/[2]https://www.ncbi.nlm.nih.gov/pmc/articles/UGT6610919/[6]https://pubmed.ncbi.nlm.nih.gov/35490477 - Reinforce importance of adherence to isolation and hygiene measures. Documentation: - Discharge summary should include date of symptom onset, date of last fever, improvement in symptoms, and criteria met for discontinuation of isolation.[1]https://www.cdc.gov/covid/hcp/infection-control/[2]https://www.ncbi.nlm.nih.gov/pmc/articles/CMP9633973/[3]https://www.nejm.org/doi/full/10.1056/EIVSre0848417 References Infection Control Guidance: SARS-CoV-2 COVID-19https://www.cdc.gov/covid/hcp/infection-control/. [place] Centers for Disease Control and Prevention (2022). The Management of Surgical Patients in The?emergency Setting During COVID-19 Pandemic: [facility] Position Paperhttps://www.ncbi.nlm.nih.gov/pmc/articles/BVD8320730/. Head, Gwendolyn E, Moraima M, et al. World Journal of Emergency Surgery : WJES. 2020;16(1):14. doi:10.1186/k19724-790-83514-8. Mild or Moderate Covid-19https://www.nejm.org/doi/full/10.1056/JAKBno1294248. Adriana RT, Sukhi LOCO, Newton C. The [employer] Journal of Medicine. 2020;383(18):0436-0229. doi:10.1056/SASOif8968885. Rapid Diagnostic Testing for VZWR-WsJ-3uzcks://www.nejm.org/doi/full/10.1056/MNTGvl6739326. Drain PK. The [employer] Journal of Medicine. 2021;386(3):264-272. doi:10.1056/BMZIqq5505612. Pathophysiology, Transmission, Diagnosis, and Treatment of Coronavirus Disease 2019 (COVID-19): A Reviewhttps://jamanetwork.com/journals/antolin/fullarticle/10.1001/antolin.2020.99724?utm_source=openevidence&utm_medium=referral. Brian WANG, Indigo A, Hawk TOPETE, Pretty SJ, Brown HC. ANTOLIN. 2020;324(8):782-793. doi:10.1001/antolin.2020.93845. Outpatient Management of COVID-19: Rapid Evidence Reviewhttps://pubmed.ncbi.nlm.nih.gov/50439816. Hawk Franco, Deepak D, Anita C. [employer]. 2020;102(8):478-486. Outpatient Treatment of Confirmed COVID-19: Living, Rapid Practice Points From the [employer] (Version 1)https://www.ncbi.nlm.nih.gov/pmc/articles/OVB6829262/. Regan A, Nirav J, Tatum MC, et al. Annals of Internal Medicine. 2022;176(1):115-124. doi:10.7326/Q72-2846. A Collaborative Multidisciplinary Approach to the Management of Coronavirus Disease 2019 in the Hospital Settinghttps://pubmed.ncbi.nlm.nih.gov/65178565. Trent RR, Ilir KM, Jyothi AM, et al. [facility] Proceedings. 2020;95(7):7733-7081. doi:10.1016/j.mayocp.2020.05.010. Print Language: Argentine Coding Level of Care Code ED Shipping Order Clerk for Susan Garvin
[2025-06-22] MEDS: ondansetron 2 mg/ML SDV 2 mL 4 MG IVP (11:25)
[2025-06-22 11:31] VITALS: BP 180/107; PULSE 70; O2SAT 100
[2025-06-22 11:41] LABS: Glucose Urine UA Negative (Normal); Nitrate Urine Negative (Negative); Specific Gravity, Urine 1.017 (1.005-1.030)
[2025-06-22 11:43] LABS: Hematocrit 45.9 % (37-53); Hemoglobin 15.40 g/dL (11.27-16.99); Mean Corpuscular HGB Conc 33.6 g/dL (30-55); Mean Corpuscular Hemoglobin 28.2 pg (27-33); Mean Corpuscular Volume 84.1 fl (82-101); Nucleated Red Blood Cells % 0 %; Platelet Count 215 10^3/cmm (157-399); Red Blood Count 5.46 10^6/uL (3.85-5.65); White Blood Count 6.77 10^3/uL (3.29-11.43)
[2025-06-22 11:46] LABS: Add Urine Microscopic? YES
[2025-06-22 11:51] LABS: Alanine Aminotransferase 114 U/L (0-41); Albumin Level 4.5 g/dL (3.5-5.2); Alkaline Phosphatase 226 U/L (40-130); Anion Gap 17.7 (5-19); Aspartate Amino Transferase 88 U/L (0-40); Blood Urea Nitrogen 10 mg/dL (6-20); Calcium 9.8 mg/dL (8.5-10.5); Carbon Dioxide 25 mmol/L (22-29); Chloride 104 mmol/L (98-107); Creatinine Clr Calc Pharmacy 99.6355; Globulin 3.6 g/dL (1.3-4.6); Glucose 110 mg/dL (65-115); Osmolality Calculated 296 mOsm/kg (285-295); Potassium 3.7 mmol/L (3.5-5.1); Sodium 143 mmol/L (136-145); Total Protein 8.1 g/dL (6.6-8.7)
[2025-06-22 12:11] LABS: Respiratory Syncytial Virus Ce NEGATIVE (Negative)
[2025-06-22 12:15] LABS: SARS-CoV-2 PCR Positive (Negative)
[2025-06-22 12:30] VITALS: BP 170/109; PULSE 72; O2SAT 99
--- NOTE | 2025-06-22 14:04 | ECG_ITS ---
[facility] Test Date: 2025-06-22 Pat Name: Armando Lemus Department: Room: Gender: Male [employer]: : 1980 Requested By: Yoandy Carrizales Order Number: [id number] Blair MD: Casandra Blue M.D. Measurements Intervals [place] Rate: 77 P: 55 OR: 173 QRS: 55 QRSD: 87 T: 31 QT: 391 QTc: 445 Interpretive Statements SINUS RHYTHM WITH SINUS ARRHYTHMIA NONSPECIFIC T-WAVE ABNORMALITY No previous ECG available for comparison Electronically Signed On 06-24-2025 23:41:17 CDT by Casandra Blue M.D. [email or web address]
== END 2025-06-22 12:31 | disposition home or self-care (01) ==
PROVIDERS: Emergency Provider Physician Assistant
DX: U07.1 COVID-19 (principal); Z11.52 Encounter for screening for COVID-19
CPT/HCPCS: 36415; 71045; 80053; 81001; 85025; 87637; 93005; 96361; 96374; 99285; J2405; J7030; J8597